=== PATIENT | male | born 2000 | race Caucasian/White ===

== ENCOUNTER 2023-11-03 11:29 | Emergency (ER) | payer OTHER, SELFPAY ==
--- NOTE | 2023-11-03 11:38 | ECG_ITS ---
Test Reason : dizziness Blood Pressure : / mmHG Vent. Rate : 114 BPM Atrial Rate : 114 BPM P-R Int : 122 ms QRS Dur : 078 ms QT Int : 312 ms P-R-T Axes : 055 050 028 degrees QTc Int : 430 ms Sinus tachycardia Otherwise normal ECG No previous ECGs available Referred By: Benny Rudolph Electronically Signed By:CAROLINE MC
--- NOTE | 2023-11-03 11:55 | ED.GENADULT ---
HPI - General Adult General Chief complaint: Dizziness Stated complaint: dizziness Time Seen by Provider: 11/03/23 14:36 Source: patient Mode of arrival: ambulatory Limitations: no limitations History of Present Illness ED Provider: Dr. Jed Huggins HPI narrative: 23-year-old male with a history of hyperlipidemia who presents emergency department for evaluation of lightheadedness and dizziness. 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 He describes the dizziness as a room spinning sensation. He states that he had a similar episode several days prior. He states that the dizziness is precipitated by change in position. He states that when he stays still the dizziness resolves. He states that he does have a slight pressure sensation in his head. He denied numbness, weakness or change in his vision. Patient was concerned about the recurrence of his symptoms therefore came to the emergency department for evaluation. Related Data Previous Rx's ?Medication ?Instructions ?Recorded meclizine 25 mg tablet (Dramamine 25 mg PO TID PRN dizziness #20 tabs 11/03/23 Less Drowsy) Allergies Allergy/AdvReac Type Severity Reaction Status Date / Time No Known Allergies Allergy Verified 11/03/23 12:17 Review of Systems Review of Systems: Yes all other systems are reviewed and are negative PMFSH Social History Social History Advance Directives: No Do you have a plan to hurt others: No Plan Physical Exam ED Vital Signs: Vital Signs - 24 hr 11/03/23 12:14 11/03/23 12:16 11/03/23 14:39 Temperature 98.7 F Pulse Rate 106 H 111 H 107 H Respiratory Rate 18 Blood Pressure 153/66 H 143/57 H 118/67 Pulse Oximetry 100 Oxygen Delivery Method Room Air 11/03/23 14:39 Temperature Pulse Rate 109 H Respiratory Rate Blood Pressure 122/67 Pulse Oximetry Oxygen Delivery Method BMI result Body Mass Index 38.4 Vital signs initially revealed an elevated blood pressure of 153/66 and elevated heart rate of 106, blood pressure improved without treatment, heart rate remained elevated Exam: General: Awake, alert in no distress Head: Normocephalic, atraumatic EENT: PERRL, Lids normal, sclera normal, conjunctiva normal, patient was lateral nystagmus nose normal , ears normal, throat without erythema or exudates Neck: Supple, no adenopathy Lung: breath sounds symmetric, no wheezing, rales or rhonchi Chest: symmetric movement, nontender Heart: regular rate and rhythm, normal S1, S2 no murmurs or rubs Abdomen: soft, non-tender, nondistended, normal bowel sounds Back: no vertebral tenderness, no CVAT Extremities: no deformities, moves all extremities symmetrically Neuro: Awake, alert, oriented, normal speech, cranial nerves intact, moves all extremities symmetrically, patient has inducible vertigo with position change Psych: Pleasant, cooperative Course Course Course Narrative: This is an RME done by EARLINE Rudolph: Additional HPI, ROS, PE not included below will be deferred to primary provider. 23 year old male presents w/ light headedness that lasted 30 mins, went away and now is somewhat coming back. Eating and drinking well. No cp, sob, nausea, vomiting, vision changes, weakness Plan- labd, urine, ekg Medical Decision Making Medical Decision Making [facility] Narrative: 23-year-old male with a history of hyperlipidemia who presents emergency department for evaluation of lightheadedness and dizziness with episode coming on suddenly while he was at work sitting in front of computer. He also had similar episodes several days prior. Patient had mild pressure-like sensation headache otherwise no other symptoms. Vital signs initially revealed an elevated blood pressure but this improved without treatment. The patient did have an elevated heart rate. The patient did have lateral nystagmus and inducible vertigo with position change and a nonfocal neurologic exam. Differential diagnosis: ?Includes but is not limited to cerebellar stroke, benign positional vertigo, myocardial infarction, myocardial ischemia, electrolyte abnormalities, anemia Following evaluation was ordered: CBC, CMP, troponin, EKG Course: The patient's laboratory evaluation was unremarkable with a non detectable troponin. Twelve EKG revealed a sinus tachycardia with no other significant abnormalities-this may be related to anxiety. Patient's exam did reveal lateral nystagmus and easily inducible positional vertigo. Patient's presentation is consistent with benign positional vertigo and I did discuss this with him. Patient was prescribed meclizine 25 mg 3 times a day as needed for dizziness. He was given printed and verbal instructions and discharged home. Admission/Observation Consideration of admission/observation: Escalation of care including admission/observation considered Lab Data [facility] Lab Attestation statement: I reviewed the patient's lab results. My interpretation of the patient's laboratory evaluation is as follows: CBC was normal. CMP was normal. Troponin was nondetectable. 11/03/23 12:00 11/03/23 12:00 Labs: Lab Results 11/03/23 Range/Units 12:00 WBC 9.6 (4.8-10.8) X10*3/uL RBC 5.63 (4.60-5.80) X10*6/uL Hgb 15.0 (14.0-18.0) g/dl Hct 44.5 (42.0-52.0) % MCV 79.0 L (80.0-98.0) fL MCH 26.6 L (27.0-33.0) pg MCHC 33.7 (31.0-36.0) g/dl RDW 13.4 (11.0-16.0) % Plt Count 471 H (160-400) X10*3/uL MPV 8.6 L (9.4-12.4) fL Immature Gran % (Auto) 0.3 (0.0-0.4) % Neut % (Auto) 67.6 (45-73) % Lymph % (Auto) 19.9 L (20-40) % [place] % (Auto) 9.5 (2-11) % Eos % (Auto) 1.7 (0-4) % Baso % (Auto) 1.0 (0-2) % Lymph # (Auto) 1.9 (1.2-4.9) X10*3/uL [place] # (Auto) 0.9 (0.1-1.2) X10*3/uL Eos # (Auto) 0.2 (0.0-0.4) X10*3/uL Baso # (Auto) 0.1 (0.0-0.2) X10*3/uL Abs Immat Gran (auto) 0.03 (0.00-0.03) X10*3/uL Absolute Neuts (auto) 6.5 (2.0-8.3) x10*3/uL Absolute Nucleated RBC 0.000 (0.0-0.012) X10*3/uL Nucleated RBC % (auto) 0.0 (0.0-0.2) /100WBC Sodium 138 (135-145) mmol/L Potassium 3.8 (3.3-5.1) mmol/L Chloride 104 (96-108) mmol/L Carbon Dioxide 26 (22-29) mmol/L Anion Gap 12 (12-20) BUN 9 (9-16) mg/dL Creatinine 0.84 (0.5-1.4) mg/dL Estim Creat Clear Calc 170.9 Estimated GFR > 60 Random Glucose 107 (60-115) mg/dL Calcium 9.7 (8.4-10.2) mg/dL Total Bilirubin 0.3 (0.0-1.0) mg/dL AST 22 (5-37) U/L ALT 36 (0-40) U/L Alkaline Phosphatase 63 (39-117) U/L Troponin I High Sens < 2.7 (<3.5-35.0) ng/L Total Protein 7.6 (6.5-8.0) g/dL Albumin 4.5 (3.5-5.0) g/dL Independent Interpretation I performed an independent interpretation of an: EKG Interpretation: My interpretation patient's 12 EKG is as follows: Sinus tachycardia with a rate of 114, normal AK interval, QRS duration QTC interval, no ST segment elevation, no ST segment depression, no PACs, no PVCs-except for the sinus tachycardia, this is a normal EKG. Chronic Conditions Patient?s care impacted by: Other (Hyperlipidemia) Discharge Plan Discharge Clinical Impression: Benign paroxysmal positional vertigo Patient Disposition: Home, Self-Care Instructions: Benign Paroxysmal Positional Vertigo (ED) Additional Instructions: Your blood work was normal. Your EKG was unremarkable. Your symptoms are consistent with positional vertigo caused by the balance mechanism in your inner your sending the wrong signal to your brain. Positional vertigo improves over time and sometimes can last for 1-2 weeks. Take meclizine 25 mg pills, 1 pill 3 times a day for the next 3 days. After 3 days take meclizine as needed for dizziness.. ?This medication will make you sleepy. ?Do not drive or work while taking this medication. Follow-up with your doctor in 2 days. Please return to the emergency department if your symptoms get worse or if you develop any symptoms that are concerning to you. Please see the work note Meclizine as an [id number] medication, if it is not covered by your insurance then ask the pharmacist where you can buy that generic brand in the pharmacy. Prescriptions: New meclizine [Dramamine Less Drowsy] 25 mg tablet 25 mg PO TID PRN (Reason: dizziness) Qty: 20 0RF Stand Alone Forms: Work/School Release Interventions: ED Discharge Assessment Last Done: 11/03/23 15:36 Discharge Date/Time: 11/03/23 15:37 Print Language: Guinean
[2023-11-03 12:04] LABS: MANUAL DIFF FLAG NO
[2023-11-03 12:05] LABS: Basophils Absolute Auto 0.1 X10*3/uL (0.0-0.2); Eosinophils Absolute Auto 0.2 X10*3/uL (0.0-0.4); Eosinophils Percent Auto 1.7 % (0-4); Hematocrit 44.5 % (42.0-52.0); Imm Gran Abs Auto 0.03 X10*3/uL (0.00-0.03); Imm Gran Pct Auto 0.3 % (0.0-0.4); Lymphocytes Absolute Auto 1.9 X10*3/uL (1.2-4.9); Lymphocytes Percent Auto 19.9 % (20-40); Mean Corpuscular HGB Conc 33.7 g/dl (31.0-36.0); Mean Corpuscular Hemoglobin 26.6 pg (27.0-33.0); Mean Platelet Volume 8.6 fL (9.4-12.4); Monocytes Absolute Auto 0.9 X10*3/uL (0.1-1.2); Monocytes Percent Auto 9.5 % (2-11); Neutrophils Absolute Auto 6.5 x10*3/uL (2.0-8.3); Neutrophils Percent Auto 67.6 % (45-73); Platelet Count 471 X10*3/uL (160-400); Red Blood Count 5.63 X10*6/uL (4.60-5.80); Red Cell Distribution Width 13.4 % (11.0-16.0); White Blood Count 9.6 X10*3/uL (4.8-10.8)
[2023-11-03 12:14] VITALS: BP 153/66; PULSE 106; RESP 18; TEMP 37.1; O2SAT 100; BMI 38.4
[2023-11-03 12:16] VITALS: BP 143/57; PULSE 111
[2023-11-03 12:19] LABS: Alanine Aminotransferase 36 U/L (0-40); Albumin Level 4.5 g/dL (3.5-5.0); Alkaline Phosphatase 63 U/L (39-117); Anion Gap 12 (12-20); Aspartate Amino Transferase 22 U/L (5-37); Bilirubin Total 0.3 mg/dL (0.0-1.0); Blood Urea Nitrogen 9 mg/dL (9-16); Calcium 9.7 mg/dL (8.4-10.2); Carbon Dioxide 26 mmol/L (22-29); Chloride 104 mmol/L (96-108); Creatinine Clr Calc Pharmacy 170.9; Estimated Glomerular Filt Rate > 60; Glucose Random 107 mg/dL (60-115); Potassium 3.8 mmol/L (3.3-5.1); Sodium 138 mmol/L (135-145); Total Protein 7.6 g/dL (6.5-8.0)
[2023-11-03 12:28] LABS: Troponin-I High Sensitivity < 2.7 ng/L (<3.5-35.0)
[2023-11-03 14:39] VITALS: BP 118/67; BP 122/67; PULSE 107; PULSE 109
[2023-11-03 15:36] VITALS: BP 122/67; PULSE 109; RESP 18; TEMP 37.1; O2SAT 100
== END 2023-11-03 15:37 | disposition home or self-care (01) ==
PROVIDERS: Physician Assistant; Emergency Provider Emergency Medicine Emergency Medical Services
DX: H81.13 Benign paroxysmal vertigo, bilateral (principal); R00.0 Tachycardia, unspecified; Z79.899 Other long term (current) drug therapy
CPT/HCPCS: 36415; 80053; 84484; 85025; 93005; 99283